=== PATIENT | male | born 1980 | race Caucasian/White ===

== ENCOUNTER → 2021-01-06 09:56 | Outpatient (CLI) | payer BC, SELFPAY ==
[2021-01-06 11:00] LABS: COVID19 -Nasal RAPID Negative (Negative)
== END ==
PROVIDERS: Referring Provider Physician Assistant; Visit Provider Physician Assistant
DX: Z20.822 Contact with and (suspected) exposure to COVID-19 (principal)
CPT/HCPCS: 87635